=== PATIENT | female | born 1955 | race Caucasian/White ===

== ENCOUNTER → 2024-03-10 15:02 | Outpatient (CLI) | payer MEDICARE, SELFPAY ==
--- NOTE | ~2024-03-10 | XR_ITS ---
EXAMINATION: XR thoracic spine 3V, XR pelvis 1-2V, XR lumbar spine 2-3V DATE: 03/10/2024 16:04 INDICATION: Spinal stenosis TECHNIQUE: 1. One AP, lateral and lateral swimmer's views of the thoracic spine were obtained. 2. AP, lateral and coned-down lateral lumbosacral views of the lumbar spine were obtained. 3. AP view of the pelvis was obtained. COMPARISON: None. FINDINGS: Thoracic and lumbar spine: 2-3 mm anterolisthesis C2 on C3 and C3 on C4. Mild thoracolumbar dextrocurvature. Sagittal alignment of the thoracic spine is normal. 17 degree lumbar levoscoliosis and 5 mm anterolisthesis L4 on L5. Mi ld anterior wedging at T6 and T12. Remaining vertebral body heights are normal. There is multilevel s evere disc height loss with degenerative endplate changes at C5-C6 and C6-C7 as well as at T4-T5 thro ugh L1-L2 with vacuum phenomena at many of these levels. Moderate disc height loss at C7-T1, T3-T4, L 2-L3, L3-L4 and L5-S1 and mild disc height loss at T1-T2, T2-T3 and L4-L5. Multilevel severe facet os teoarthritis on the right side of the lumbar spine as well as in the left at L4-L5 and L5-S1. Spinal stimulator lead which extends into the central canal at the level of L1-L2 with distal tips at the po sterior central canal at level of the inferior aspect of T9. Cholecystectomy clips in the right upper quadrant. Visualized lungs are clear. Heart size is normal. No pleural effusion or pneumothorax. Pelvis: Bilateral noncemented total hip arthroplasties in near-anatomic alignment. No fracture. Mild bilatera l sacroiliac osteoarthritis. Likely tubal ligation clips in the left and right pelvis. IMPRESSION: 1. Severe cervical, thoracic and lumbar spondylosis. Reviewed, dictated and finalized at location A. IMPRESSION: 1. Severe cervical, thoracic and lumbar spondylosis. IMPRESSION: 1. Severe cervical, thoracic and lumbar spondylosis.
== END ==
PROVIDERS: PCP Nurse Practitioner Adult Health; Visit Provider Nurse Practitioner Adult Health
DX: M48.062 Spinal stenosis, lumbar region with neurogenic claudication (principal); M43.02 Spondylolysis, cervical region; M43.04 Spondylolysis, thoracic region; M43.06 Spondylolysis, lumbar region
CPT/HCPCS: 72072; 72100; 72170